=== PATIENT | male | born 1945 | race Caucasian/White ===

== ENCOUNTER 2021-02-03 08:54 | Outpatient (CLI) | payer MEDICARE | END 2021-02-03 08:55 | disposition home or self-care (01) | LOC: CSHWCC 08:54 | PROVIDERS: ATTEND Nurse Practitioner Family | DX: E11.621 Type 2 diabetes mellitus with foot ulcer (principal); E03.9 Hypothyroidism, unspecified; E11.40 Type 2 diabetes mellitus with diabetic neuropathy, unspecified; E11.65 Type 2 diabetes mellitus with hyperglycemia; L97.412 Non-pressure chronic ulcer of right heel and midfoot with fat layer exposed; E78.2 Mixed hyperlipidemia; I10 Essential (primary) hypertension; I63.9 Cerebral infarction, unspecified; I70.201 Unspecified atherosclerosis of native arteries of extremities, right leg; I87.2 Venous insufficiency (chronic) (peripheral) | CPT/HCPCS: 11042; 97139; G0463; 99203 ==

== ENCOUNTER 2021-02-10 10:26 | Outpatient (CLI) | payer MEDICARE | END 2021-02-10 10:27 | disposition home or self-care (01) | LOC: CSHWCC 10:26 | PROVIDERS: ATTEND Nurse Practitioner Family | DX: E11.621 Type 2 diabetes mellitus with foot ulcer (principal); E03.9 Hypothyroidism, unspecified; E11.40 Type 2 diabetes mellitus with diabetic neuropathy, unspecified; E11.65 Type 2 diabetes mellitus with hyperglycemia; L97.412 Non-pressure chronic ulcer of right heel and midfoot with fat layer exposed; L97.512 Non-pressure chronic ulcer of other part of right foot with fat layer exposed; E78.2 Mixed hyperlipidemia; I10 Essential (primary) hypertension; I63.9 Cerebral infarction, unspecified; I70.201 Unspecified atherosclerosis of native arteries of extremities, right leg; I87.2 Venous insufficiency (chronic) (peripheral) ==

== ENCOUNTER 2021-03-10 10:51 | Outpatient (CLI) | payer MEDICARE | END 2021-03-10 10:52 | disposition home or self-care (01) | LOC: CSHWCC 10:51 | PROVIDERS: ATTEND Nurse Practitioner Family | DX: E11.621 Type 2 diabetes mellitus with foot ulcer (principal); L97.412 Non-pressure chronic ulcer of right heel and midfoot with fat layer exposed; L97.512 Non-pressure chronic ulcer of other part of right foot with fat layer exposed; E03.9 Hypothyroidism, unspecified; E11.40 Type 2 diabetes mellitus with diabetic neuropathy, unspecified; E11.65 Type 2 diabetes mellitus with hyperglycemia; E78.2 Mixed hyperlipidemia; I10 Essential (primary) hypertension; I63.9 Cerebral infarction, unspecified; I70.201 Unspecified atherosclerosis of native arteries of extremities, right leg; I87.2 Venous insufficiency (chronic) (peripheral) ==

== ENCOUNTER 2023-01-24 13:53 | Outpatient (CLI) | payer MEDICARE, OTHER | END 2023-01-24 13:54 | disposition home or self-care (01) | LOC: CSHWCC 13:53 | PROVIDERS: ATTEND Physician Assistant | DX: I73.9 Peripheral vascular disease, unspecified (principal); E11.40 Type 2 diabetes mellitus with diabetic neuropathy, unspecified; M72.0 Palmar fascial fibromatosis [Dupuytren] | CPT/HCPCS: 97597; G0463; 99213 ==

== ENCOUNTER 2023-02-11 10:41 | Outpatient (CLI) | payer MEDICARE, OTHER | END 2023-02-11 10:42 | disposition home or self-care (01) | LOC: CSHWCC 10:41 | PROVIDERS: ATTEND Physician Assistant | DX: E11.40 Type 2 diabetes mellitus with diabetic neuropathy, unspecified (principal); E11.51 Type 2 diabetes mellitus with diabetic peripheral angiopathy without gangrene; M72.0 Palmar fascial fibromatosis [Dupuytren] | CPT/HCPCS: 99212; G0463 ==

== ENCOUNTER 2023-03-24 13:44 | Outpatient (CLI) | payer MEDICARE, OTHER | END 2023-03-24 13:45 | disposition home or self-care (01) | LOC: CSHWCC 13:44 | PROVIDERS: ATTEND Preventive Medicine Undersea and Hyperbaric Medicine | DX: L97.512 Non-pressure chronic ulcer of other part of right foot with fat layer exposed (principal); E11.40 Type 2 diabetes mellitus with diabetic neuropathy, unspecified; E11.59 Type 2 diabetes mellitus with other circulatory complications; M72.0 Palmar fascial fibromatosis [Dupuytren] | CPT/HCPCS: 99214; G0463 ==

== ENCOUNTER 2023-03-30 16:03 | Outpatient (CLI) | payer MEDICARE, OTHER | END 2023-03-30 16:04 | disposition home or self-care (01) | LOC: CSHWCC 16:03 | PROVIDERS: ATTEND Physician Assistant | DX: E11.40 Type 2 diabetes mellitus with diabetic neuropathy, unspecified (principal); L97.512 Non-pressure chronic ulcer of other part of right foot with fat layer exposed; I73.9 Peripheral vascular disease, unspecified; M72.0 Palmar fascial fibromatosis [Dupuytren] | CPT/HCPCS: 99213; G0463 ==

== ENCOUNTER 2023-04-06 14:59 | Outpatient (CLI) | payer MEDICARE, OTHER | END 2023-04-06 15:00 | disposition home or self-care (01) | LOC: CSHWCC 14:59 | PROVIDERS: ATTEND Physician Assistant | DX: E11.622 Type 2 diabetes mellitus with other skin ulcer (principal); L97.512 Non-pressure chronic ulcer of other part of right foot with fat layer exposed; E11.40 Type 2 diabetes mellitus with diabetic neuropathy, unspecified; E11.59 Type 2 diabetes mellitus with other circulatory complications; M72.0 Palmar fascial fibromatosis [Dupuytren] | CPT/HCPCS: 11042; 87070; 87077; 87186; 87205; G0463; 99213 ==

== ENCOUNTER 2023-04-13 16:41 | Outpatient (CLI) | payer MEDICARE, OTHER | END 2023-04-13 16:42 | disposition home or self-care (01) | LOC: CSHWCC 16:41 | PROVIDERS: ATTEND Nurse Practitioner Family | DX: E11.621 Type 2 diabetes mellitus with foot ulcer (principal); L97.512 Non-pressure chronic ulcer of other part of right foot with fat layer exposed; E11.40 Type 2 diabetes mellitus with diabetic neuropathy, unspecified; E11.51 Type 2 diabetes mellitus with diabetic peripheral angiopathy without gangrene; M72.0 Palmar fascial fibromatosis [Dupuytren] | CPT/HCPCS: 11042; G0463; 99213 ==

== ENCOUNTER 2023-04-20 14:52 | Outpatient (CLI) | payer MEDICARE, OTHER | END 2023-04-20 14:53 | disposition home or self-care (01) | LOC: CSHWCC 14:52 | PROVIDERS: ATTEND Nurse Practitioner Family | DX: E11.40 Type 2 diabetes mellitus with diabetic neuropathy, unspecified (principal); E11.621 Type 2 diabetes mellitus with foot ulcer; L97.512 Non-pressure chronic ulcer of other part of right foot with fat layer exposed; L97.525 Non-pressure chronic ulcer of other part of left foot with muscle involvement without evidence of necrosis; I73.9 Peripheral vascular disease, unspecified; M72.0 Palmar fascial fibromatosis [Dupuytren]; L03.116 Cellulitis of left lower limb | CPT/HCPCS: 97597 ==

== ENCOUNTER 2023-05-04 15:01 | Outpatient (CLI) | payer MEDICARE, OTHER | END 2023-05-04 15:02 | disposition home or self-care (01) | LOC: CSHWCC 15:01 | PROVIDERS: ATTEND Nurse Practitioner Family | DX: L97.512 Non-pressure chronic ulcer of other part of right foot with fat layer exposed (principal); L97.525 Non-pressure chronic ulcer of other part of left foot with muscle involvement without evidence of necrosis; I73.9 Peripheral vascular disease, unspecified; E11.40 Type 2 diabetes mellitus with diabetic neuropathy, unspecified; L03.116 Cellulitis of left lower limb; M72.0 Palmar fascial fibromatosis [Dupuytren] | CPT/HCPCS: 99213; G0463 ==

== ENCOUNTER 2023-05-05 12:25 | Outpatient (CLI) | payer MEDICARE, OTHER | END 2023-05-05 12:26 | disposition home or self-care (01) | LOC: CSHSPEC 12:25 | PROVIDERS: ATTEND Nurse Practitioner Family | DX: Z01.818 Encounter for other preprocedural examination (principal); L97.512 Non-pressure chronic ulcer of other part of right foot with fat layer exposed; Z95.0 Presence of cardiac pacemaker; M86.9 Osteomyelitis, unspecified; L03.116 Cellulitis of left lower limb | CPT/HCPCS: 71045; 82565 ==

== ENCOUNTER 2023-05-18 | Outpatient (CLI) | payer MEDICARE, OTHER | END 2023-05-18 13:14 | disposition home or self-care (01) | DX: E11.621 Type 2 diabetes mellitus with foot ulcer (principal); L97.512 Non-pressure chronic ulcer of other part of right foot with fat layer exposed; L97.525 Non-pressure chronic ulcer of other part of left foot with muscle involvement without evidence of necrosis; L03.116 Cellulitis of left lower limb; E11.40 Type 2 diabetes mellitus with diabetic neuropathy, unspecified; M72.0 Palmar fascial fibromatosis [Dupuytren]; I70.203 Unspecified atherosclerosis of native arteries of extremities, bilateral legs; E11.59 Type 2 diabetes mellitus with other circulatory complications ==

== ENCOUNTER 2023-11-23 13:03 | Outpatient (CLI) | payer MEDICARE, OTHER | END 2023-11-23 13:04 | disposition home or self-care (01) | LOC: CSHWCC 13:03 | PROVIDERS: ATTEND Nurse Practitioner Family | DX: E11.621 Type 2 diabetes mellitus with foot ulcer (principal); L97.512 Non-pressure chronic ulcer of other part of right foot with fat layer exposed; C90.00 Multiple myeloma not having achieved remission; I70.213 Atherosclerosis of native arteries of extremities with intermittent claudication, bilateral legs | CPT/HCPCS: 11042; G0463; 99213 ==

== ENCOUNTER 2024-01-12 12:45 | Outpatient (CLI) | payer MEDICARE, OTHER | END 2024-01-12 12:46 | disposition home or self-care (01) | LOC: CSHWCC 12:45 | PROVIDERS: ATTEND Nurse Practitioner Family | DX: E11.621 Type 2 diabetes mellitus with foot ulcer (principal); L97.512 Non-pressure chronic ulcer of other part of right foot with fat layer exposed; E11.51 Type 2 diabetes mellitus with diabetic peripheral angiopathy without gangrene; I70.203 Unspecified atherosclerosis of native arteries of extremities, bilateral legs; C90.00 Multiple myeloma not having achieved remission | CPT/HCPCS: 11042; G0463; 99213 ==

== ENCOUNTER 2024-01-20 13:56 | Outpatient (CLI) | payer MEDICARE, OTHER | END 2024-01-20 13:57 | disposition home or self-care (01) | LOC: CSHWCC 13:56 | PROVIDERS: ATTEND Nurse Practitioner Family | DX: E11.621 Type 2 diabetes mellitus with foot ulcer (principal); L97.512 Non-pressure chronic ulcer of other part of right foot with fat layer exposed; I70.203 Unspecified atherosclerosis of native arteries of extremities, bilateral legs; C90.00 Multiple myeloma not having achieved remission; E11.59 Type 2 diabetes mellitus with other circulatory complications | CPT/HCPCS: 11042 ==

== ENCOUNTER 2024-01-27 15:31 | Outpatient (CLI) | payer MEDICARE, OTHER | END 2024-01-27 15:32 | disposition home or self-care (01) | LOC: CSHWCC 15:31 | PROVIDERS: ATTEND Nurse Practitioner Family | DX: E11.621 Type 2 diabetes mellitus with foot ulcer (principal); L97.512 Non-pressure chronic ulcer of other part of right foot with fat layer exposed; I70.203 Unspecified atherosclerosis of native arteries of extremities, bilateral legs; C90.00 Multiple myeloma not having achieved remission; E11.59 Type 2 diabetes mellitus with other circulatory complications | CPT/HCPCS: 11042 ==

== ENCOUNTER 2024-02-10 13:13 | Outpatient (CLI) | payer MEDICARE, OTHER | END 2024-02-10 13:14 | disposition home or self-care (01) | LOC: CSHWCC 13:13 | PROVIDERS: ATTEND Family Medicine | DX: I70.203 Unspecified atherosclerosis of native arteries of extremities, bilateral legs (principal); E11.621 Type 2 diabetes mellitus with foot ulcer; L97.512 Non-pressure chronic ulcer of other part of right foot with fat layer exposed; E11.59 Type 2 diabetes mellitus with other circulatory complications; C90.00 Multiple myeloma not having achieved remission | CPT/HCPCS: 11042 ==

== ENCOUNTER 2024-02-17 15:11 | Outpatient (CLI) | payer MEDICARE, OTHER | END 2024-02-17 15:12 | disposition home or self-care (01) | LOC: CSHWCC 15:11 | PROVIDERS: ATTEND Nurse Practitioner Family | DX: E11.621 Type 2 diabetes mellitus with foot ulcer (principal); L97.512 Non-pressure chronic ulcer of other part of right foot with fat layer exposed; E11.51 Type 2 diabetes mellitus with diabetic peripheral angiopathy without gangrene; I70.203 Unspecified atherosclerosis of native arteries of extremities, bilateral legs; C90.00 Multiple myeloma not having achieved remission | CPT/HCPCS: 99212; G0463 ==

== ENCOUNTER 2024-03-02 15:30 | Outpatient (CLI) | payer MEDICARE, OTHER | END 2024-03-02 15:31 | disposition home or self-care (01) | LOC: CSHWCC 15:30 | PROVIDERS: ATTEND Nurse Practitioner Family | DX: E11.621 Type 2 diabetes mellitus with foot ulcer (principal); L97.512 Non-pressure chronic ulcer of other part of right foot with fat layer exposed; E11.51 Type 2 diabetes mellitus with diabetic peripheral angiopathy without gangrene; I73.9 Peripheral vascular disease, unspecified; C90.00 Multiple myeloma not having achieved remission | CPT/HCPCS: 97597; G0463; 99213 ==

== ENCOUNTER 2024-03-29 12:02 | Outpatient (CLI) | payer MEDICARE, OTHER | END 2024-03-29 12:03 | disposition home or self-care (01) | LOC: CSHWCC 12:02 | PROVIDERS: ATTEND Nurse Practitioner Family | DX: E11.621 Type 2 diabetes mellitus with foot ulcer (principal); L97.512 Non-pressure chronic ulcer of other part of right foot with fat layer exposed; I70.203 Unspecified atherosclerosis of native arteries of extremities, bilateral legs; C90.00 Multiple myeloma not having achieved remission; E11.59 Type 2 diabetes mellitus with other circulatory complications | CPT/HCPCS: 97597 ==

== ENCOUNTER 2024-04-19 12:44 | Outpatient (CLI) | payer MEDICARE, OTHER | END 2024-04-19 12:45 | disposition home or self-care (01) | LOC: CSHWCC 12:44 | PROVIDERS: ATTEND Nurse Practitioner Family ==